=== PATIENT | female | born 1980 | race American Indian/Alaskan Native ===

== ENCOUNTER 2016-09-22 21:30 | Emergency (ER) | payer OTHER ==
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
[2016-09-23 04:28] VITALS: BP 110/68
--- NOTE | 2016-09-23 07:16 | XRay Report ---
LEFT ELBOW, 3 views: History: Left elbow pain The bony architecture is intact without evidence of fracture or dislocation. No significant soft tissue abnormality is seen. IMPRESSION: Normal left elbow.
--- NOTE | 2016-09-23 07:17 | XRay Report ---
LEFT SHOULDER, 3 views: History: Shoulder pain. Routine views demonstrate normal bony and soft tissue structures with normal joint alignment of the shoulder. IMPRESSION: Normal study.
== END 2016-09-23 04:28 | disposition home or self-care (01) ==
LOC: ED 21:30
DX: M25.512 Pain in left shoulder (principal); M54.2 Cervicalgia; M25.522 Pain in left elbow; C50.919 Malignant neoplasm of unspecified site of unspecified female breast; V49.40XA Driver injured in collision with unspecified motor vehicles in traffic accident, initial encounter; Y92.488 Other paved roadways as the place of occurrence of the external cause; Y93.89 Activity, other specified; Y99.8 Other external cause status
CPT/HCPCS: 81025; 93005; 93010